=== PATIENT | male | born 1985 | race Caucasian/White ===

== ENCOUNTER 2021-02-24 13:52 | Emergency (ER) | payer OTHER ==
[2021-02-24] MEDS ORDERED: Aspirin 81 MG Tab.Chew PO ONE (14:04)
[2021-02-24] MEDS ORDERED: Acetaminophen 500 MG Tab PO ONE (14:04)
[2021-02-24] MEDS ORDERED: Cyclobenzaprine 10 MG Tab PO ONE (14:07)
--- NOTE | 2021-02-24 14:09 | EDM.PDOC ---
ED HPI GENERAL MEDICAL PROBLEM - General Chief Complaint: Chest Pain Stated Complaint: SOB,CHEST PAIN Time Seen by Provider: 02/24/21 13:53 Source of Information: Reports: Patient History Limitations: Reports: No Limitations - History of Present Illness INITIAL COMMENTS - FREE TEXT/NARRATIVE: 35-year-old male no past medical history presents for chest pain. Patient states that he has noted this for the last 3 or so days. It is radiating from his midline anterior neck down into his left anterior chest. He notes shortness of breath and an inability to take a deep breath then. He notes a pleuritic chest pain. He denies tenderness to palpation of the area. He denies anything making it better or worse. He does note a slight nonproductive cough. He denies any fevers. Denies any lower extremity swelling or pain. No personal history of blood clots. Non-smoker. Chest Pain Score (Numeric/FACES): 3 - Related Data Allergies Allergy/AdvReac Type Severity Reaction Status Date / Time cefaclor [From [facility]] Allergy Fever Verified 02/24/21 14:04 Sulfa (Sulfonamide Allergy Hives Verified 02/24/21 14:04 Antibiotics) Home Meds: Home Meds Famotidine [Pepcid] 40 mg PO DAILY #14 tablet 02/24/21 [Rx] Social & Family History - Tobacco Use Second Hand Smoke Exposure: No - Caffeine Use Caffeine Use: Reports: None - Recreational Drug Use Recreational Drug Use: No ED ROS GENERAL - Review of Systems Review Of Systems: Comprehensive ROS is negative, except as noted in HPI. ED EXAM, GENERAL - Physical Exam Exam: See Below Exam Limited By: No Limitations General Appearance: Alert, WD/WN, No Apparent Distress Ears: Hearing Grossly Normal Throat/Mouth: Normal Voice, No Airway Compromise Head: Atraumatic, Normocephalic Respiratory/Chest: No Respiratory Distress, Lungs Clear, Normal Breath Sounds, No Accessory Muscle Use Cardiovascular: Normal Peripheral Pulses, Regular Rate, Rhythm, No Edema Extremities: Normal Inspection Neurological: Alert, Normal Cognition, Normal Gait Psychiatric: Normal Affect, Normal Mood Skin Exam: Warm, Dry, Intact, Normal Color #1 Interpretation EKG Date: 02/24/21 Time: 13:53 Rhythm: NSR Rate (Beats/Min): 48 Samson: Normal P-Wave: Present QRS: Normal ST-T: Normal QT: Normal CO/PQ Interval: 130 Comparison: NA - No Prior EKG EKG Interpretation Comments: sinus bert, normal EKG Course - Vital Signs Last Recorded V/S: Last Vital Signs Temp 97.4 F 02/24/21 13:57 Pulse 77 02/24/21 14:58 Resp 20 02/24/21 13:57 BP 140/80 02/24/21 14:58 Pulse Ox 97 02/24/21 14:58 - Orders/Labs/Meds Orders: Active Orders 24 hr Category Date Time Status Saline Lock Insert [OM.PC] Stat Oth 02/24/21 14:04 Ordered Labs: Laboratory Tests 02/24/21 02/24/21 02/24/21 Range/Units 14:00 14:00 14:00 WBC 7.46 (4.0-11.0) K/uL RBC 4.51 (4.50-5.90) M/uL Hgb 14.4 (13.0-17.0) g/dL Hct 41.2 (38.0-50.0) % MCV 91.4 (80.0-98.0) fL MCH 31.9 (27.0-32.0) pg MCHC 35.0 (31.0-37.0) g/dL RDW Std Deviation 41.8 (28.0-62.0) fl RDW Coeff of Adelso 13 (11.0-15.0) % Plt Count 204 (150-400) K/uL MPV 11.10 (7.40-12.00) fL Neut % (Auto) 57.4 (48.0-80.0) % Lymph % (Auto) 32.0 (16.0-40.0) % [place] % (Auto) 9.0 (0.0-15.0) % Eos % (Auto) 1.2 (0.0-7.0) % Baso % (Auto) 0.4 (0.0-1.5) % Neut # (Auto) 4.3 (1.4-5.7) K/uL Lymph # (Auto) 2.4 (0.6-2.4) K/uL [place] # (Auto) 0.7 (0.0-0.8) K/uL Eos # (Auto) 0.1 (0.0-0.7) K/uL Baso # (Auto) 0.0 (0.0-0.1) K/uL Nucleated RBC % 0.0 /100WBC Nucleated RBCs # 0 K/uL D-Dimer, Quantitative < 0.19 (0.0-0.50) mg/L FEU Sodium 140 (136-148) mmol/L Potassium 3.9 (3.5-5.1) mmol/L Chloride 105 (98-107) mmol/L Carbon Dioxide 26.9 (21.0-32.0) mmol/L BUN 21 H (7.0-18.0) mg/dL Creatinine 0.9 (0.8-1.3) mg/dL Est Cr Clr Drug Dosing 124.34 mL/min Estimated GFR (MDRD) > 60.0 ml/min Glucose 97 (74-106) mg/dL Calcium 8.7 (8.5-10.1) mg/dL Total Bilirubin 0.6 (0.2-1.0) mg/dL AST 23 (15-37) IU/L ALT 31 (14-63) IU/L Alkaline Phosphatase 68 (46-116) U/L Troponin I < 0.050 (0.000-0.056) ng/mL C-Reactive Protein <0.20 (0.00-0.90) mg/dL Total Protein 7.1 (6.4-8.2) g/dL Albumin 3.9 (3.4-5.0) g/dL Globulin 3.2 (2.6-4.0) g/dL Albumin/Globulin Ratio 1.2 (0.9-1.6) SARS-CoV-2 RNA (ABDULKADIR) (NEGATIVE) 02/24/21 Range/Units 14:18 WBC (4.0-11.0) K/uL RBC (4.50-5.90) M/uL Hgb (13.0-17.0) g/dL Hct (38.0-50.0) % MCV (80.0-98.0) fL MCH (27.0-32.0) pg MCHC (31.0-37.0) g/dL RDW Std Deviation (28.0-62.0) fl RDW Coeff of Adelso (11.0-15.0) % Plt Count (150-400) K/uL MPV (7.40-12.00) fL Neut % (Auto) (48.0-80.0) % Lymph % (Auto) (16.0-40.0) % [place] % (Auto) (0.0-15.0) % Eos % (Auto) (0.0-7.0) % Baso % (Auto) (0.0-1.5) % Neut # (Auto) (1.4-5.7) K/uL Lymph # (Auto) (0.6-2.4) K/uL [place] # (Auto) (0.0-0.8) K/uL Eos # (Auto) (0.0-0.7) K/uL Baso # (Auto) (0.0-0.1) K/uL Nucleated RBC % /100WBC Nucleated RBCs # K/uL D-Dimer, Quantitative (0.0-0.50) mg/L FEU Sodium (136-148) mmol/L Potassium (3.5-5.1) mmol/L Chloride (98-107) mmol/L Carbon Dioxide (21.0-32.0) mmol/L BUN (7.0-18.0) mg/dL Creatinine (0.8-1.3) mg/dL Est Cr Clr Drug Dosing mL/min Estimated GFR (MDRD) ml/min Glucose (74-106) mg/dL Calcium (8.5-10.1) mg/dL Total Bilirubin (0.2-1.0) mg/dL AST (15-37) IU/L ALT (14-63) IU/L Alkaline Phosphatase (46-116) U/L Troponin I (0.000-0.056) ng/mL C-Reactive Protein (0.00-0.90) mg/dL Total Protein (6.4-8.2) g/dL Albumin (3.4-5.0) g/dL Globulin (2.6-4.0) g/dL Albumin/Globulin Ratio (0.9-1.6) SARS-CoV-2 RNA (ABDULKADIR) NEGATIVE (NEGATIVE) Meds: Medications Discontinued Medications Generic Name Dose Route Start Last Admin Trade Name Freq PRN Reason Stop Dose Admin Acetaminophen 1,000 mg 02/24/21 14:04 02/24/21 14:23 Acetaminophen 500 Mg Tab PO 02/24/21 14:05 1,000 mg ONETIME ONE Administration Aspirin 324 mg 02/24/21 14:04 02/24/21 14:23 Aspirin 81 Mg Tab.Chew PO 02/24/21 14:05 324 mg ONETIME ONE Administration Alum [place]/Mag [place]/Simeth XS 0 ml 02/24/21 15:28 02/24/21 15:40 15 ml/ Lidocaine HCl 5 ml PO 02/24/21 15:29 20 each ONETIME ONE Administration Cyclobenzaprine HCl 10 mg 02/24/21 14:07 02/24/21 14:23 Cyclobenzaprine 10 Mg Tab PO 02/24/21 14:08 10 mg ONETIME ONE Administration - Re-Assessments/Exams Free Text/Narrative Re-Assessment/Exam: 02/24/21 15:48 Patien'ts labs unremarkable; feels better after GI cocktail. Will d/c with PMD f/u Departure - Departure Time of Disposition: 15:48 Disposition: Home, Self-Care 01 Condition: Good Clinical Impression: Chest pain Qualifiers: Chest pain type: unspecified Qualified Code(s): R07.9 - Chest pain, unspecified - Discharge Information Instructions: Nonspecific Chest Pain, Adult Forms: ED Department Discharge Additional Instructions: I sent medication to your pharmacy. Please follow-up with your primary care physician. If you have worsening chest pain or difficulty breathing then please return to the emergency department. [facility] The following information is given to patients seen in the emergency department who are being discharged to home. This information is to outline your options for follow-up care. We provide all patients seen in our emergency department with a follow-up referral. The need for follow-up, as well as the timing and circumstances, are variable depending upon the specifics of your emergency department visit. If you don't have a primary care physician on staff, we will provide you with a referral. We always advise you to contact your personal physician following an emergency department visit to inform them of the circumstance of the visit and for follow-up with them and/or the need for any referrals to a consulting specialist. The emergency department will also refer you to a specialist when appropriate. This referral assures that you have the opportunity for follow-up care with a specialist. All of these measure are taken in an effort to provide you with optimal care, which includes your follow-up. Under all circumstances we always encourage you to contact your private physician who remains a resource for coordinating your care. When calling for follow-up care, please make the office aware that this follow-up is from your recent emergency room visit. If for any reason you are refused follow-up, please contact the [facility] Emergency Department at and asked to speak to the emergency department charge nurse. Please follow up with your primary care physician. If you do not have a primary care physician, see below: [facility] [address] [place] [phone] [facility] [address] [place] [id number] [facility] [address] [place] [id number] Sepsis Event Note (ED) - Evaluation Sepsis Screening Result: No Definite Risk - Focused Exam Vital Signs: Vital Signs Temp Pulse Resp BP Pulse Ox 02/24/21 14:58 77 140/80 97 02/24/21 13:58 63 147/97 H 97 02/24/21 13:57 97.4 F 71 20 148/97 H 97 - My Orders Last 24 Hours: My Active Orders 02/24/21 14:04 Saline Lock Insert [OM.PC] Stat - Assessment/Plan Last 24 Hours: My Active Orders 02/24/21 14:04 Saline Lock Insert [OM.PC] Stat
[2021-02-24 14:50] LABS: BLOOD UREA NITROGEN,BUN 21 mg/dL (7.0-18.0); CARBON DIOXIDE,CO2 26.9 mmol/L (21.0-32.0); CHLORIDE,CL 105 mmol/L (98-107); GLUCOSE RANDOM 97 mg/dL (74-106); POTASSIUM,K 3.9 mmol/L (3.5-5.1); SODIUM,NA 140 mmol/L (136-148)
--- NOTE | 2021-02-24 15:13 | CR ---
INDICATION: Chest pain. TECHNIQUE: Chest 1 view. COMPARISON: None. FINDINGS: No focal consolidation, pleural effusion, or pneumothorax. Normal heart size and pulmonary vascularity. The bones are unremarkable. IMPRESSION: No acute cardiopulmonary findings. Dictated by Shruti De La Cruz MD @ 02/24/2021 3:11:18 PM (Electronically Signed)
[2021-02-24] MEDS ORDERED: Alum Hydro/Mag Hydro/Simeth XS 15 ML, Lidocaine 2% 5 ML PO ONE ×2 (15:28)
[2021-02-24 15:59] VITALS: BP 135/71; PULSE 88
== END 2021-02-24 16:04 | disposition home or self-care (01) ==
LOC: MW.ED 13:52
DX: R07.9 Chest pain, unspecified (principal); Z88.2 Allergy status to sulfonamides; Z88.1 Allergy status to other antibiotic agents; Z20.822 Contact with and (suspected) exposure to COVID-19
CPT/HCPCS: 36415; 71045; 80053; 84484; 85025; 85379; 86140; 87635; 93005; 99285; A9270; U0002